=== PATIENT | female | born 1975 | race Two or more races ===

== ENCOUNTER 2018-12-24 10:48 | Emergency (ER) | payer MEDICAID, OTHER ==
[~2018-12-24] VITALS: Ht 157.5 cm; Wt 77.1 kg
[2018-12-24 11:27] VITALS: BP 138/91
[2018-12-24] MEDS ORDERED: IBUPROFEN 800 MG TAB PO ONE (12:00)
== END 2018-12-24 13:06 | disposition home or self-care (01) ==
LOC: ER 10:48
DX: S50.11XA Contusion of right forearm, initial encounter (principal); R51 Headache; R42 Dizziness and giddiness; V49.9XXA Car occupant (driver) (passenger) injured in unspecified traffic accident, initial encounter; Y93.89 Activity, other specified; Y92.488 Other paved roadways as the place of occurrence of the external cause; Y99.8 Other external cause status
CPT/HCPCS: 73060